=== PATIENT | male | born 1960 | race Caucasian/White ===

== ENCOUNTER → 2023-12-07 | Outpatient (CLI) | payer OTHER ==
[~2023-12-07] MED LIST: GASTROGRAFIN SOLUTION 30ML As Ordered ONE; ISOVUE-370 76% 100ML VIAL As Ordered ONE
== END ==
LOC: M RAD 12:02
PROVIDERS: ATTEND Surgery
DX: K40.90 Unilateral inguinal hernia, without obstruction or gangrene, not specified as recurrent (principal)
CPT/HCPCS: 74177; Q9963; Q9967

== ENCOUNTER → 2024-02-14 | Outpatient (CLI) | payer OTHER | LOC: M EKG 09:48 | PROVIDERS: ATTEND Anesthesiology | DX: F41.9 Anxiety disorder, unspecified (principal) ==

== ENCOUNTER 2024-02-22 06:08 | Day surgery (SDC) | payer OTHER ==
[~2024-02-22] VITALS: Ht 170.2 cm; Wt 59.4 kg
[2024-02-22] MEDS ORDERED: LR 1,000 ML IV SCH (06:15)
[2024-02-22] MEDS ORDERED: SUGAMMADEX SODIUM 500 MG/5 ML VIAL (BRIDION) As Ordered ONE (06:19)
[2024-02-22] MEDS ORDERED: ROCURONIUM BROMIDE 50MG/5ML VIAL As Ordered ONE (06:19)
[2024-02-22] MEDS ORDERED: ONDANSETRON 4MG 2ML VIAL As Ordered ONE (06:19)
[2024-02-22] MEDS ORDERED: LIDOCAINE 2% 100MG/5ML SDV (FOR ANES.) As Ordered ONE (06:19)
[2024-02-22] MEDS ORDERED: GLYCOPYRROLATE INJ 0.2 MG/ML 2 ML VIAL As Ordered ONE (06:19)
[2024-02-22] MEDS ORDERED: propofoL 200 MG/20 ML VIAL As Ordered ONE (06:19)
[2024-02-22] MEDS ORDERED: KETOROLAC 60MG 2ML VIAL As Ordered ONE (06:20)
[2024-02-22] MEDS ORDERED: ACETAMINOPHEN 1000MG/100ML IV BAG As Ordered ONE (06:20)
[2024-02-22] MEDS ORDERED: fentaNYL 100 MCG/2 ML INJECTION As Ordered ONE (06:23)
[2024-02-22] MEDS ORDERED: MIDAZOLAM INJ 2MG/2ML VIAL As Ordered ONE (06:23)
[2024-02-22] MEDS: ceFAZolin SOD 2 GM in IV 1 EA IV ONE (07:39)
[2024-02-22] MEDS ORDERED: oxyCODONE 5MG TAB PO PRN (09:35)
[2024-02-22] MEDS ORDERED: fentaNYL 100 MCG/2 ML INJECTION IV PRN (09:35)
[2024-02-22] MEDS ORDERED: ONDANSETRON 4MG 2ML VIAL IV PRN (09:35)
[2024-02-22] MEDS ORDERED: PHENYLephrine 500MCG 5ML (100MCG/ML) SYRINGE As Ordered ONE (10:20)
[2024-02-22 12:05] VITALS: BP 174/98; TEMP 97.8; O2SAT 99
== END 2024-02-22 12:12 | disposition home or self-care (01) ==
LOC: M SDC 06:08
PROVIDERS: ATTEND Surgery
DX: K40.90 Unilateral inguinal hernia, without obstruction or gangrene, not specified as recurrent (principal); J30.81 Allergic rhinitis due to animal (cat) (dog) hair and dander; Z88.0 Allergy status to penicillin
CPT/HCPCS: 49650; C1781; C9290; J0131; J0665; J0690; J1100; J1596; J1885; J2250; J2371; J2405; J3010; S2900